=== PATIENT | female | born 1960 | race Caucasian/White ===

== ENCOUNTER → 2017-02-16 | Outpatient (CLI) | payer BC ==
[~2017-02-16] MED LIST: ATOR20TA PO; HYDR25TA PO; METO25TA6 PO; OMEP-122 PO; RIZA10TA24 PO; SUCR1TAB PO
== END ==
LOC: WC.BC 11:16
DX: Z12.31 Encounter for screening mammogram for malignant neoplasm of breast (principal)
CPT/HCPCS: 77063; G0202